=== PATIENT | female | born 1975 | race Caucasian/White ===

== ENCOUNTER 2016-08-09 12:40 | Inpatient (IN) | payer OTHER ==
[2016-08-09] MEDS ORDERED: NORMAL SALINE 10 ML SYRINGE FLUSH IVP PRN (12:51)
[2016-08-09] MEDS ORDERED: Sodium Chloride 0.9% 1,000 ML PRIMARY IV ONE (12:51)
--- NOTE | 2016-08-09 13:03 | EKG ---
[address] [place] [id number] Measurements Intervals [place] Rate: 133 P: 80 ME: 155 QRS: 16 QRSD: 81 T: 48 QT: 280 QTc: 358 Interpretive Statements SINUS TACHYCARDIA ABNORMAL RHYTHM ECG SLOW R WAVE PROGRESSION V1-V4. MAY BE LEAD PLACEMENT No previous ECG available for comparison Electronically Signed On 08-10-16 12:17:16 MST by Evan Peterson [email or web address]
[2016-08-09 13:11] LABS: BASOPHILS # (AUTO) 0.01 10*3/UL; BASOPHILS % (AUTO) 0.1 % (0-1); EOSINOPHILS % (AUTO) 0 % (0-8); HEMATOCRIT 45.8 % (37.0-47.0); HEMOGLOBIN 15.9 g/dL (12.0-16.0); IMM GRAN % (AUTO) 0.1 % (0-5); IMM GRAN# (AUTO) 0.02 10*3/UL; LYMPHOCYTES # (AUTO) 0.68 10*3/uL; LYMPHOCYTES % (AUTO) 4.9 % (10-50); MEAN CORPUSCULAR HEMOGLOBIN 31.4 PG (27-31); MEAN CORPUSCULAR HGB CONC 34.7 g/dL (33-37); MEAN PLATELET VOLUME 12.1 FL (7.4-12.2); MONOCYTES # (AUTO) 0.63 10*3/UL (0.3-0.8); MONOCYTES % (AUTO) 4.5 % (5-15); NEUTROPHILS # (AUTO) 12.51 10*3/UL; NEUTROPHILS % (AUTO) 90.4 % (50-80); RDW COEFFICIENT OF VARIATION 13.7 % (11.5-14.5); RED BLOOD COUNT 5.07 10^6/uL (4.20-5.40); WHITE BLOOD COUNT 13.85 10^3/uL (4.8-10.8)
--- NOTE | 2016-08-09 13:19 | PDOC ---
Dyspnea HPI - General Chief Complaint: Respiratory Complaint Stated Complaint: difficulty breathing Date Seen by Provider: 08/09/16 Time Seen by Provider: 12:45 Source: POSITIVE: Patient Exam Limitations: POSITIVE: No limitations Treatment Prior to Arrival: REPORTS: Oxygen, Albuterol Neb Treatment (Per EMS), Other (Ativan 1 mg IV, DuoNeb and albuterol neb treatment at home) Nurse's Notes Reviewed & Considered: Yes EMS Report Reviewed & Considered: Verbal - History of Present Illness Initial Comments: The patient is a 41-year-old female who is transported to the emergency department with worsening shortness of breath. She has a known history of asthma. She has had increased wheezing and shortness of breath for the past several days. She had presented to the emergency department last night. She underwent chest x-ray that was unremarkable. She had received several neb treatments as well as a dose of Solu-Medrol and IV magnesium with improvement. Her oxygen saturations were in the upper 80s lower 90s on room air. She was discharged home with prescriptions for Zithromax which she did take her first dose here in the emergency room last night as well as a prednisone taper. She filled her prednisone prescription this morning and took a dose of 60 mg. She also was started on Pulmicort neb treatments and has duo nebs at home. She stated that she started to develop increased wheezing, tightness with pressure in her upper back and difficulty breathing despite neb treatments. Subsequently EMS was called. When they arrived on scene the patient was hypoxic with O2 saturations in the lower 80s on room air. She was also tachycardic with heart rate of 150. She was given an albuterol neb treatment and placed on O2 per nonrebreather mask and transported here to the emergency department. She was quite anxious and was given Ativan 1 mg IV in route. On arrival she is feeling slightly better. She states that her breathing still feels quite tight and she does have some tightness across her back primarily. She does have some pain across her chest with coughing. She denies fevers or chills, swelling in her extremities or any other associated complaints. Other than asthma she denies any prior medical problems. She denies any history of heart problems or history of blood clots. - Patient Home Medications Home Medications: Home Medications Levothyroxine Sodium [Levothroid] 25 mcg PO DAILY 09/10/12 Albuterol Sulfate [Ventolin Hfa] 1 puff INH Q6H PRN PRN puff 11/25/12 Fluticasone/Salmeterol [Advair 250-50 Diskus] 1 puff INH BID puff 11/25/12 Ipratropium/Albuterol Sulfate [Duoneb 2.5-0.5 Mg/3 Ml Soln] 3 ml NEB Q4-6H PRN ml 11/25/12 Albuterol Neb Soln 0.083% 2.5 mg NEB Q2H PRN PRN #120 amp 08/08/16 Azithromycin 250 mg PO DAILY #5 tab 08/08/16 Budesonide Neb Soln [Pulmicort Neb Soln] 0.5 mg NEB BID #60 ea 08/08/16 predniSONE Tab [Deltasone Tab] 20 mg PO DAILY 08/08/16 predniSONE Tab [Deltasone Tab] See Taper PO DAILY #100 tab 08/08/16 - Patient Allergies Allergies/Adverse Reactions: Allergies Allergy/AdvReac Type Severity Reaction Status Date / Time No Known Allergies Allergy Verified 08/09/16 12:51 Past Medical History - heen HEENT History: Other (please comment) Additional HEENT History: TONSILS/ADENOIDS Cardiovascular History: Denies History Respiratory History: Asthma Gastrointestinal History: Denies History Genitourinary History: Denies History Endocrine History: Hypothyroidism Musculoskeletal History: Other (please comment) Prosthesis or Implant: No Additional Musculoskeletal History: Left Knee Repair Neurological History: Denies History Blood Disorders: Denies History Psychiatric History: Denies History History of Sexually Transmitted Diseases: No Cancer History: Denies History History of MDRO: No History of Other Communicable Diseases: No Alcohol Use: Occasionally Substance Use Type: None Previous Surgical History: Yes Type / Date of Surgery: BILATERAL KNEE REPAIR. TONSILS/ADENOIDS Anesthesia Reactions: No Significant Family History: Asthma Past Medical History Reviewed: Reviewed - No Changes ROS - Limitations ROS Limitations: No Limitations Constitution: DENIES: Chills, Fever Cardiovascular: DENIES: Chest Pain, Heart Palpitations, Blood Pressure Problem, Edema Respiratory: REPORTS: Cough Non Productive, Hurts To Breathe (Feels tight across her upper back), Shortness Of Breath, Wheezing Neurological: REPORTS: Denies Neuro Symptoms Gastrointestinal: REPORTS: Denies GI Symptoms Endocrine: REPORTS: Denies Symptoms Musculoskeletal: REPORTS: Denies MS Symptoms Genitourinary: REPORTS: Denies Symptoms Eyes: REPORTS: Denies Symptoms ENT: REPORTS: Congestion. DENIES: Sore Throat Skin: DENIES: Rash Dyspnea Physical Exam - General Appearance General Appearance: REPORTS: Alert, Cooperative, No Acute Distress, Anxious - HEENT HEENT: POSITIVE: Head Inspection Nml, Eyes Inspection Nml, Ears Inspection Nml, Pharynx Inspect. Nml - Respiratory Respiratory: REPORTS: Breath Sounds Normal, Other (The patient does show some mild increased work of breathing, she is able to answer questions however past to stop periodically to take a deep breath during conversation) - Cardiovascular Cardiovascular: REPORTS: Regular Rate and Rhythm, Heart Sounds Normal Peripheral Pulses: Dorsalis-pedis (R): 2+, Dorsalis-pedis (L): 2+ - Abdomen Abdomen: Soft: (All Quadrants), Denies Tenderness: (All Quadrants), No Distention: (All Quadrants) - Skin Skin: REPORTS: Intact. DENIES: No Rash - Extremities Extremity: Normal ROM: (All Extremities), Normal Inspection: (All Extremities) - Neurological / Psychological Neurological: POSITIVE: Oriented X3, Motor Normal, Sensation Normal Dyspnea Progress - Results Reviewed by me Xrays/CTs/US Reviewed by me: Yes Discussed with Radiologist: Yes Radiology Findings: Some air trapping noted on her portable chest x-ray with no acute findings otherwise per radiologist. Lab Results Reviewed: Yes Lab Results:: Laboratory Results 08/09/16 08/09/16 08/09/16 Range/Units 13:04 13:26 14:20 WBC 13.85 H (4.8-10.8) 10^3/uL RBC 5.07 (4.20-5.40) 10^6/uL Hgb 15.9 (12.0-16.0) g/dL Hct 45.8 (37.0-47.0) % MCV 90.3 (81-99) FL MCH 31.4 H (27-31) PG MCHC 34.7 (33-37) g/dL RDW Std Deviation 45.1 (39-50) fL RDW Coeff of Jeanine 13.7 (11.5-14.5) % Plt Count 217 (140-350) 10*3/uL MPV 12.1 (7.4-12.2) FL Immature Gran % (Auto) 0.1 (0-5) % Neut % (Auto) 90.4 H (50-80) % Lymph % (Auto) 4.9 L (10-50) % Wallace % (Auto) 4.5 L (5-15) % Eos % (Auto) 0 (0-8) % Baso % (Auto) 0.1 (0-1) % Immature Gran # (Auto) 0.02 10*3/UL Neut # (Auto) 12.51 10*3/UL Lymph # (Auto) 0.68 10*3/uL Wallace # (Auto) 0.63 (0.3-0.8) 10*3/UL Eos # (Auto) 0 10*3/UL Baso # (Auto) 0.01 10*3/UL WBC Morphology Comment Normal morphology (NORM) Plt Morphology Comment Normal morphology (NORM) RBC Morph Comment Normal morphology (NORM) D-Dimer < 0.19 (0.00-0.59) mg/L ABG pH 7.54 H (7.35-7.45) ABG pCO2 24 L (34-38) MMHG ABG pO2 73 (65-75) MMHG ABG HCO3 20 L (22-26) ABG Total CO2 21 L (23-27) MMOL/L ABG O2 Saturation 97 (90-100) % ABG Base Excess -2 (-2-2) MMOL/L Francesco Test Yes FiO2 2l Sodium 135 (135-145) meq/L Potassium 3.8 (3.8-5.2) meq/L Chloride 101 (98-112) meq/L Carbon Dioxide 23 (23-33) meq/L Anion Gap 11 (5-20) BUN 7 (7-22) mg/dL Creatinine 0.7 (0.50-1.20) mg/dL Estimated GFR > 60 (>60 ml/min/1.73m(2)) BUN/Creatinine Ratio 10.00 (6-20) Glucose 136 H (78-110) mg/dL Calculated Osmolality 279.0 (267-292) mOsm/kg Lactic Acid 1.3 (0.70-2.10) MMOL/L Calcium 8.3 L (8.7-10.7) mg/dL Magnesium 1.9 (1.6-2.4) mg/dL Total Bilirubin 0.7 (0.3-1.2) mg/dL AST 21 (8-39) IU/L ALT 31 (9-52) IU/L Alkaline Phosphatase 62 (38-126) IU/L Troponin I < 0.012 (< 0.040) ng/mL C-Reactive Protein 2.1 H (0.0-0.9) mg/dL Total Protein 7.1 (6.1-8.0) g/dL Albumin 4.1 (3.5-4.8) g/dL Globulin 3.1 (2.50-4.10) g/dL Albumin/Globulin Ratio 1.30 (1.3-2.0) mg/g Serum HCG, Qual Negative EKG Interpreted/Reviewed By Me:: Yes EKG Interpretation:: POSITIVE: Normal Intervals, Normal [place], Normal QRS, Normal ST/T, Other (Sinus tachycardia with no acute changes otherwise, rate is in the 130s) - Patient's Progress MDM / ED Course: The patient had received IV Solu-Medrol earlier this morning and had taken 60 mg of prednisone this morning as well. She had received several neb treatments at home and per EMS in route. She also received Ativan 1 mg IV in route. She also had received Zithromax earlier this morning as well. She had received IV magnesium this morning earlier as well. Here her work of breathing seem to be improving. She was placed on nasal cannula 4 L and was maintaining oxygen saturations in the low 90s. EKG was obtained showing sinus tachycardia with no acute changes otherwise. Her blood work is otherwise essentially unremarkable. Her white blood cell count is elevated likely secondary to steroids. Blood cultures were obtained. Her venous blood gas showed respiratory alkalosis. At this time the patient will be admitted for further treatment of asthma exacerbation. Dr. Jimenez has agreed to admit the patient. The patient is in agreement with this plan. - Consult Counseled: POSITIVE: Patient, Family, RE: Lab Results, RE: Radiology Results, RE : DX Patient Care Time - Estimated PCT Patient Care Time (In Minutes): 35 Vital Signs - Recent Vital Signs Vital Signs: Vital Signs (Last 8 hours) Temp Pulse Pulse Pulse Resp BP BP 08/09/16 18:55 08/09/16 16:12 08/09/16 15:30 125 H 122 H 24 08/09/16 15:15 98.2 F 120 H 20 148/91 08/09/16 14:55 98.7 F 110 H 19 138/96 08/09/16 12:40 98.8 F 136 H 23 151/93 Pulse Ox 08/09/16 18:55 97 08/09/16 16:12 94 08/09/16 15:30 08/09/16 15:15 98 08/09/16 14:55 96 08/09/16 12:40 86 - VS Reviewed Vital Signs Reviewed: Yes Discharge Clinical Impression: Asthma exacerbation, Hypoxia Discharge Disposition: Admit to Inpatient Condition: Fair Date Decision to Admit to Inpatient: 08/09/16 Time Decision to Admit to Inpatient: 15:45
[2016-08-09 13:23] LABS: PLATELET MORPHOLOGY COMMENT NORMAL MORPHOLOGY (NORM)
[2016-08-09 13:41] LABS: ABG PH 7.54 (7.35-7.45); COLLECTION SITE LEFT RADIAL
[2016-08-09 13:42] LABS: ABG BASE EXCESS -2 MMOL/L (-2-2); ABG HCO3 20 (22-26); ABG OXYGEN SATURATION 97 % (90-100); ABG TCO2 21 MMOL/L (23-27); ALLEN TEST YES; FIO2/O2 2L
[2016-08-09 14:54] LABS: ASPARTATE AMINO TRANSFERASE 21 IU/L (8-39); BILIRUBIN,TOTAL 0.7 mg/dL (0.3-1.2); BLOOD UREA NITROGEN 7 mg/dL (7-22); C-REACTIVE PROTEIN 2.1 mg/dL (0.0-0.9); CALCIUM 8.3 mg/dL (8.7-10.7); CHLORIDE 101 meq/L (98-112); CREATININE 0.7 mg/dL (0.50-1.20); EST GLOMERULAR FILTRATION > 60 (>60 ml/min/1.73m(2)); GLUCOSE 136 mg/dL (78-110); LACTATE 1.3 MMOL/L (0.70-2.10); MAGNESIUM 1.9 mg/dL (1.6-2.4); POTASSIUM 3.8 meq/L (3.8-5.2); SODIUM 135 meq/L (135-145); TOTAL PROTEIN 7.1 g/dL (6.1-8.0)
--- NOTE | 2016-08-09 15:21 | DI ---
HISTORY: Respiratory distress. History of asthma. COMPARISON: 08/08/2016. FINDINGS: The heart is within normal limits. Compared to the previous examination of 08/08/2016, th ere is some air trapping bilaterally with slight accentuation of the pulmonary vasculature in both edy ng bases. The lung danielle are otherwise essentially clear. IMPRESSION: 1. There is some air trapping bilaterally with slight accentuation of the pulmonary vasculature in vidhya th lung bases.
[2016-08-09] MEDS ORDERED: ALBUTEROL SULFATE 2.5 MG/3 ML NEB ONE (15:39)
--- NOTE | 2016-08-09 16:09 | PDOC ---
History and Physical - History of Present Illness History of Present Illness: Very nice 41-year-old female with past medical history significant for asthma has been getting worse over the last few days with her shortness of breath and hypoxia she visited the ER yesterday where she was given steroid and med Zithromax she never actually started taking the Zithromax but today comes back to the ER with the worsening of her asthma exacerbation she was the satting in the upper 80s and actually in the low 80s when EMS got to her also tachycardic with a heart rate of 150 she will be admitted to the hospital with the above diagnoses Past Medical History Medical History: Asthma, hypothyroidism Tobacco Use: Never Smoker Substance Use Type: None Medication / Allergies Home Medications: Home Medications Medication Instructions Recorded Confirmed Type Levothyroxine Sodium [Levothroid] 25 mcg PO DAILY 09/10/12 08/09/16 History Albuterol Sulfate [Ventolin Hfa] 1 puff INH Q6H PRN PRN puff 11/25/12 08/09/16 History Fluticasone/Salmeterol [Advair 1 puff INH BID puff 11/25/12 08/09/16 History 250-50 Diskus] Ipratropium/Albuterol Sulfate 3 ml NEB Q4-6H PRN ml 11/25/12 08/09/16 History [Duoneb 2.5-0.5 Mg/3 Ml Soln] Albuterol Neb Soln 0.083% 2.5 mg NEB Q2H PRN PRN #120 amp 08/08/16 08/09/16 Rx Azithromycin 250 mg PO DAILY #5 tab 08/08/16 08/09/16 Rx Budesonide Neb Soln [Pulmicort Neb 0.5 mg NEB BID #60 ea 08/08/16 08/09/16 Rx Soln] predniSONE Tab [Deltasone Tab] 20 mg PO DAILY 08/08/16 08/09/16 History predniSONE Tab [Deltasone Tab] See Taper PO DAILY #100 tab 08/08/16 08/09/16 Rx Allergies/Adverse Reactions: Allergies Allergy/AdvReac Type Severity Reaction Status Date / Time No Known Allergies Allergy Verified 08/09/16 12:51 Review of Systems - Review of Systems All Systems: Reviewed & No Additional Complaints Except as Stated - Respiratory Respiratory: REPORTS: Cough, Wheezing - Cardiovascular Cardiovascular: DENIES: Negative System Review, Chest Pain, Edema, Syncope, Palpitations, Orthopnea, Paroxysmal Nocturnal Dyspnea, Other, See HPI - Gastrointestinal Gastrointestinal / Abdominal: DENIES: Negative System Review, Nausea, Vomiting, Diarrhea, Constipation, Abdominal Pain, Bloody Stool, Poor Appetite, Heartburn, Regurgitation, Bloating, Lactose Intolerance, Melena, Bright Red Blood Per Rectum, Other, See HPI - Genitourinary Genitourinary: DENIES: Negative System Review, Pain, Burning, Hematuria, Incontinence, Urgency, Hesitant Stream, Decreased Stream, Nocutria, Discharge, Sexual Dyfunction, Other, See HPI - Neurological Neurologic: DENIES: Negative System Review, Headache, Numbness/Paresthesia, Tremors, Weakness, Seizures, Head Trauma, LOC, Dizziness, Confusion, Memory Loss , Difficulty Walking, Incoordination, Other, See HPI Exam - Vitals Vital Signs: Vital Signs Temperature 98.8 F Temperature Source Temporal Artery Scan Pulse Rate [Pulse Oximeter] 136 Respiratory Rate 23 Blood Pressure [Right Arm] 151/93 Pulse Ox 86 Oxygen Delivery Method Room Air Height 5 ft 6 in Weight 86.183 kg - General General Appearance: POSITIVE: Mild Distress - Head Head Exam: POSITIVE: Normal Inspection, Normocephalic, Atraumatic - Neck Neck Exam: POSITIVE: Normal Inspection, Full ROM - Respiratory Additional Respiratory Exam Details: Crackles in the left lower lobe and scattered wheezes still moving air - Cardiovascular Cardiovascular Exam: POSITIVE: RRR, No Murmur, No Clicks, No Gallops - GI/Abdominal GI/Abdominal Exam: POSITIVE: Normal Bowel Sounds, Non Tender, Non Distended, Soft - Extremities Extremities Exam: POSITIVE: Normal Inspection, No Clubbing Present, No Edema Present Results - Labs CBC and BMP: 08/09/16 13:04 08/09/16 14:20 Labs - Last 24 Hours: Laboratory Results 08/09/16 08/09/16 08/09/16 Range/Units 13:04 13:26 14:20 WBC 13.85 H (4.8-10.8) 10^3/uL RBC 5.07 (4.20-5.40) 10^6/uL Hgb 15.9 (12.0-16.0) g/dL Hct 45.8 (37.0-47.0) % MCV 90.3 (81-99) FL MCH 31.4 H (27-31) PG MCHC 34.7 (33-37) g/dL RDW Std Deviation 45.1 (39-50) fL RDW Coeff of Jeanine 13.7 (11.5-14.5) % Plt Count 217 (140-350) 10*3/uL MPV 12.1 (7.4-12.2) FL Immature Gran % (Auto) 0.1 (0-5) % Neut % (Auto) 90.4 H (50-80) % Lymph % (Auto) 4.9 L (10-50) % [place] % (Auto) 4.5 L (5-15) % Eos % (Auto) 0 (0-8) % Baso % (Auto) 0.1 (0-1) % Immature Gran # (Auto) 0.02 10*3/UL Neut # (Auto) 12.51 10*3/UL Lymph # (Auto) 0.68 10*3/uL [place] # (Auto) 0.63 (0.3-0.8) 10*3/UL Eos # (Auto) 0 10*3/UL Baso # (Auto) 0.01 10*3/UL WBC Morphology Comment Normal morphology (NORM) Plt Morphology Comment Normal morphology (NORM) RBC Morph Comment Normal morphology (NORM) D-Dimer < 0.19 (0.00-0.59) mg/L ABG pH 7.54 H (7.35-7.45) ABG pCO2 24 L (34-38) MMHG ABG pO2 73 (65-75) MMHG ABG HCO3 20 L (22-26) ABG Total CO2 21 L (23-27) MMOL/L ABG O2 Saturation 97 (90-100) % ABG Base Excess -2 (-2-2) MMOL/L Francesco Test Yes FiO2 2l Sodium 135 (135-145) meq/L Potassium 3.8 (3.8-5.2) meq/L Chloride 101 (98-112) meq/L Carbon Dioxide 23 (23-33) meq/L Anion Gap 11 (5-20) BUN 7 (7-22) mg/dL Creatinine 0.7 (0.50-1.20) mg/dL Estimated GFR > 60 (>60 ml/min/1.73m(2)) BUN/Creatinine Ratio 10.00 (6-20) Glucose 136 H (78-110) mg/dL Calculated Osmolality 279.0 (267-292) mOsm/kg Lactic Acid 1.3 (0.70-2.10) MMOL/L Calcium 8.3 L (8.7-10.7) mg/dL Magnesium 1.9 (1.6-2.4) mg/dL Total Bilirubin 0.7 (0.3-1.2) mg/dL AST 21 (8-39) IU/L ALT 31 (9-52) IU/L Alkaline Phosphatase 62 (38-126) IU/L Troponin I < 0.012 (< 0.040) ng/mL C-Reactive Protein 2.1 H (0.0-0.9) mg/dL Total Protein 7.1 (6.1-8.0) g/dL Albumin 4.1 (3.5-4.8) g/dL Globulin 3.1 (2.50-4.10) g/dL Albumin/Globulin Ratio 1.30 (1.3-2.0) mg/g Serum HCG, Qual Negative Assessment and Plan - Patient Problems (1) Asthma exacerbation Current Visit: No Status: Acute (2) Bronchitis Current Visit: No Status: Acute - Assessment / Plan Additional Assessment/Plan Details: #1 asthma exacerbation we will continue with that nebs every hour with steroids , we will also start IV steroids, keep a close eye on the patient also ordered CAT scan of her chest may sure there is no underlying pneumonia start Levaquin at 750 daily discuss case of respiratory therapy
[2016-08-09] MEDS ORDERED: Levofloxacin 750mg (Premix) 750 MG in Dextrose 1 BAG IV SCH (16:30)
[2016-08-09] MEDS: HEPARIN 5000 UNIT/1 ML SUBCUT SCH (17:38)
[2016-08-09] MEDS: methylPREDNISolone 125 MG/2 ML VIAL IVP SCH ×2 (17:38→21:30)
[2016-08-09] MEDS: LEVALBUTEROL HCL 1.25 MG/3 ML NEB PRN (17:56)
--- NOTE | 2016-08-09 18:22 | DI ---
HISTORY: Hypoxia. History of asthma. COMPARISON: None available. TECHNIQUE: Multiple CT images were obtained through the chest with IV contrast. FINDINGS: There is no evidence of pulmonary embolism. There is no infiltrate nor effusion. No mediastinal lymphadenopathy. The upper abdomen is unremarkable. IMPRESSION: 1. No pulmonary embolism. NOTIFICATION: The above report was sent to Carla Jenkins in the ER Department on 08/09/2016 at 08:20 P M EST.
[2016-08-09] MEDS: FLUTICASONE/SALMETEROL 250/50 UD INHALER INH SCH (18:43)
[2016-08-09] MEDS: BUDESONIDE 0.5 MG/2 ML NEB SCH (18:44)
[2016-08-09] MEDS ORDERED: BUDESONIDE 0.5 MG/2 ML NEB SCH (19:00)
[2016-08-09] MEDS ORDERED: IBUPROFEN 800 MG TABLET PO PRN (20:28)
[2016-08-09] MEDS: ALBUTEROL SULFATE 2.5 MG/3 ML NEB PRN (20:51)
[2016-08-09] MEDS: NORMAL SALINE 10 ML SYRINGE FLUSH IVP PRN (21:30)
[2016-08-10] MEDS: HEPARIN 5000 UNIT/1 ML SUBCUT SCH ×2 (01:04→07:51)
[2016-08-10] MEDS: LEVALBUTEROL HCL 1.25 MG/3 ML NEB PRN ×3 (01:14→11:55)
[2016-08-10] MEDS: methylPREDNISolone 125 MG/2 ML VIAL IVP SCH ×2 (04:37→11:33)
[2016-08-10] MEDS: NORMAL SALINE 10 ML SYRINGE FLUSH IVP PRN (04:37)
[2016-08-10 05:40] LABS: BASOPHILS # (AUTO) 0.01 10*3/UL; BASOPHILS % (AUTO) 0.1 % (0-1); EOSINOPHILS % (AUTO) 0 % (0-8); HEMATOCRIT 45.4 % (37.0-47.0); HEMOGLOBIN 15.3 g/dL (12.0-16.0); IMM GRAN % (AUTO) 0.2 % (0-5); IMM GRAN# (AUTO) 0.03 10*3/UL; LYMPHOCYTES # (AUTO) 0.94 10*3/uL; LYMPHOCYTES % (AUTO) 5.7 % (10-50); MEAN CORPUSCULAR HEMOGLOBIN 30.9 PG (27-31); MEAN CORPUSCULAR HGB CONC 33.7 g/dL (33-37); MEAN PLATELET VOLUME 11.9 FL (7.4-12.2); MONOCYTES # (AUTO) 0.66 10*3/UL (0.3-0.8); NEUTROPHILS # (AUTO) 14.85 10*3/UL; RDW COEFFICIENT OF VARIATION 13.9 % (11.5-14.5); RED BLOOD COUNT 4.95 10^6/uL (4.20-5.40); WHITE BLOOD COUNT 16.49 10^3/uL (4.8-10.8)
[2016-08-10 05:51] LABS: PLATELET MORPHOLOGY COMMENT NORMAL MORPHOLOGY (NORM)
[2016-08-10 05:56] LABS: ASPARTATE AMINO TRANSFERASE 34 IU/L (8-39); BILIRUBIN,TOTAL 0.6 mg/dL (0.3-1.2); BLOOD UREA NITROGEN 7 mg/dL (7-22); CALCIUM 8.4 mg/dL (8.7-10.7); CHLORIDE 105 meq/L (98-112); CREATININE 0.7 mg/dL (0.50-1.20); EST GLOMERULAR FILTRATION > 60 (>60 ml/min/1.73m(2)); GLUCOSE 133 mg/dL (78-110); MAGNESIUM 2.2 mg/dL (1.6-2.4); POTASSIUM 4.6 meq/L (3.8-5.2); SODIUM 141 meq/L (135-145)
[2016-08-10] MEDS ORDERED: LEVOTHYROXINE 25 MCG TABLET PO SCH (06:30)
[2016-08-10] MEDS: ALBUTEROL SULFATE 2.5 MG/3 ML NEB PRN ×2 (06:48→08:55)
[2016-08-10] MEDS: BUDESONIDE 0.5 MG/2 ML NEB SCH (06:52)
[2016-08-10] MEDS: FLUTICASONE/SALMETEROL 250/50 UD INHALER INH SCH (06:53)
[2016-08-10 07:40] VITALS: RESP 24
[2016-08-10] MEDS ORDERED: LORazepam 2 MG/1 ML VIAL IVP ONE (09:18)
[2016-08-10] MEDS ORDERED: IPRATROPIUM/ALBUTEROL SULFATE 3 ML NEB NEB ONE (12:25)
[2016-08-10] MEDS ORDERED: ETOMIDATE 2 MG/1 ML - 20 ML IVP ONE (13:11)
[2016-08-10] MEDS ORDERED: SUCCINYLCHOLINE CHLORIDE 20 MG/1 ML - 10 ML ONE (13:11)
--- NOTE | 2016-08-10 13:49 | DCSUMMARY ---
Hospitalization Summary Hospital Course: Final Discharge Diagnosis: Current Visit Problems Problem Status Priority Diagnosed Code Asthma exacerbation Acute J45.901 Hypoxia Acute R09.02 Diagnostic Data, Laboratory Data, and Procedures of Signifigance: Laboratory Results 08/09/16 08/09/16 08/09/16 Range/Units 13:04 13:26 14:20 WBC 13.85 H (4.8-10.8) 10^3/uL RBC 5.07 (4.20-5.40) 10^6/uL Hgb 15.9 (12.0-16.0) g/dL Hct 45.8 (37.0-47.0) % MCV 90.3 (81-99) FL MCH 31.4 H (27-31) PG MCHC 34.7 (33-37) g/dL RDW Std Deviation 45.1 (39-50) fL RDW Coeff of Jeanine 13.7 (11.5-14.5) % Plt Count 217 (140-350) 10*3/uL MPV 12.1 (7.4-12.2) FL Immature Gran % (Auto) 0.1 (0-5) % Neut % (Auto) 90.4 H (50-80) % Lymph % (Auto) 4.9 L (10-50) % Hooker % (Auto) 4.5 L (5-15) % Eos % (Auto) 0 (0-8) % Baso % (Auto) 0.1 (0-1) % Immature Gran # (Auto) 0.02 10*3/UL Neut # (Auto) 12.51 10*3/UL Lymph # (Auto) 0.68 10*3/uL Hooker # (Auto) 0.63 (0.3-0.8) 10*3/UL Eos # (Auto) 0 10*3/UL Baso # (Auto) 0.01 10*3/UL WBC Morphology Comment Normal morphology (NORM) Plt Morphology Comment Normal morphology (NORM) RBC Morph Comment Normal morphology (NORM) D-Dimer < 0.19 (0.00-0.59) mg/L ABG pH 7.54 H (7.35-7.45) ABG pCO2 24 L (34-38) MMHG ABG pO2 73 (65-75) MMHG ABG HCO3 20 L (22-26) ABG Total CO2 21 L (23-27) MMOL/L ABG O2 Saturation 97 (90-100) % ABG Base Excess -2 (-2-2) MMOL/L Francesco Test Yes FiO2 2l Sodium 135 (135-145) meq/L Potassium 3.8 (3.8-5.2) meq/L Chloride 101 (98-112) meq/L Carbon Dioxide 23 (23-33) meq/L Anion Gap 11 (5-20) BUN 7 (7-22) mg/dL Creatinine 0.7 (0.50-1.20) mg/dL Estimated GFR > 60 (>60 ml/min/1.73m(2)) BUN/Creatinine Ratio 10.00 (6-20) Glucose 136 H (78-110) mg/dL Calculated Osmolality 279.0 (267-292) mOsm/kg Lactic Acid 1.3 (0.70-2.10) MMOL/L Calcium 8.3 L (8.7-10.7) mg/dL Magnesium 1.9 (1.6-2.4) mg/dL Total Bilirubin 0.7 (0.3-1.2) mg/dL AST 21 (8-39) IU/L ALT 31 (9-52) IU/L Alkaline Phosphatase 62 (38-126) IU/L Troponin I < 0.012 (< 0.040) ng/mL C-Reactive Protein 2.1 H (0.0-0.9) mg/dL Total Protein 7.1 (6.1-8.0) g/dL Albumin 4.1 (3.5-4.8) g/dL Globulin 3.1 (2.50-4.10) g/dL Albumin/Globulin Ratio 1.30 (1.3-2.0) mg/g Serum HCG, Qual Negative 08/10/16 Range/Units 05:20 WBC 16.49 H (4.8-10.8) 10^3/uL RBC 4.95 (4.20-5.40) 10^6/uL Hgb 15.3 (12.0-16.0) g/dL Hct 45.4 (37.0-47.0) % MCV 91.7 (81-99) FL MCH 30.9 (27-31) PG MCHC 33.7 (33-37) g/dL RDW Std Deviation 46.4 (39-50) fL RDW Coeff of Jeanine 13.9 (11.5-14.5) % Plt Count 203 (140-350) 10*3/uL MPV 11.9 (7.4-12.2) FL Immature Gran % (Auto) 0.2 (0-5) % Neut % (Auto) 90.0 H (50-80) % Lymph % (Auto) 5.7 L (10-50) % Hooker % (Auto) 4.0 L (5-15) % Eos % (Auto) 0 (0-8) % Baso % (Auto) 0.1 (0-1) % Immature Gran # (Auto) 0.03 10*3/UL Neut # (Auto) 14.85 10*3/UL Lymph # (Auto) 0.94 10*3/uL Hooker # (Auto) 0.66 (0.3-0.8) 10*3/UL Eos # (Auto) 0 10*3/UL Baso # (Auto) 0.01 10*3/UL WBC Morphology Comment Normal morphology (NORM) Plt Morphology Comment Normal morphology (NORM) RBC Morph Comment Normal morphology (NORM) D-Dimer (0.00-0.59) mg/L ABG pH (7.35-7.45) ABG pCO2 (34-38) MMHG ABG pO2 (65-75) MMHG ABG HCO3 (22-26) ABG Total CO2 (23-27) MMOL/L ABG O2 Saturation (90-100) % ABG Base Excess (-2-2) MMOL/L Francesco Test FiO2 Sodium 141 D (135-145) meq/L Potassium 4.6 (3.8-5.2) meq/L Chloride 105 (98-112) meq/L Carbon Dioxide 26 (23-33) meq/L Anion Gap 10 (5-20) BUN 7 (7-22) mg/dL Creatinine 0.7 (0.50-1.20) mg/dL Estimated GFR > 60 (>60 ml/min/1.73m(2)) BUN/Creatinine Ratio 10.00 (6-20) Glucose 133 H (78-110) mg/dL Calculated Osmolality 291.0 (267-292) mOsm/kg Lactic Acid (0.70-2.10) MMOL/L Calcium 8.4 L (8.7-10.7) mg/dL Magnesium 2.2 (1.6-2.4) mg/dL Total Bilirubin 0.6 (0.3-1.2) mg/dL AST 34 (8-39) IU/L ALT 38 (9-52) IU/L Alkaline Phosphatase 62 (38-126) IU/L Troponin I (< 0.040) ng/mL C-Reactive Protein (0.0-0.9) mg/dL Total Protein 7.0 (6.1-8.0) g/dL Albumin 3.9 (3.5-4.8) g/dL Globulin 3.1 (2.50-4.10) g/dL Albumin/Globulin Ratio 1.20 L (1.3-2.0) mg/g Serum HCG, Qual History and Physical pertinent to Admission: HEENT History: Other (please comment) Additional HEENT History: TONSILS/ADENOIDS Cardiovascular History: Denies History Respiratory History: Asthma Gastrointestinal History: Denies History Genitourinary History: Denies History Endocrine History: Hypothyroidism Musculoskeletal History: Other (please comment) Prosthesis or Implant: No Additional Musculoskeletal History: Left Knee Repair Neurological History: Denies History Blood Disorders: Denies History Psychiatric History: Denies History History of Sexually Transmitted Diseases: No Cancer History: Denies History History of MDRO: No History of Other Communicable Diseases: No Alcohol Use: Occasionally Substance Use Type: None Previous Surgical History: Yes Type / Date of Surgery: BILATERAL KNEE REPAIR. TONSILS/ADENOIDS Anesthesia Reactions: No Significant Family History: Asthma Past Medical History Reviewed: Reviewed - No Changes ROS Course of Hospitalization: This very nice 41-year-old female past medical history significant for asthma was previously [place] for another [place] [facility]. [place]ed to the ER a few days ago with some expiratory wheezes was given treatments and by mouth steroids discharged home patient comes back to the ER yesterday with increased wheezing and was admitted the to the hospital for further care . The patient was started on neb treatments Q 1 to 2 hours with albuterol, DuoNeb' s, budesonide, Advair and IV steroids 60 IV every 6 patient was doing pretty well last night we were in the room talking with her kids and was speaking in full sentences as well as us morning she was doing pretty well with 2 L of oxygen and 91-92% but still some expiratory and inspiratory wheezing after 12 PM she started to get more fatigued with increased expiratory and inspiratory wheezing and now working pretty hard and using accessory muscles and was tiring out. Gases were 7.54 and 24 yesterday this was a VBG. Today ABG on 6 L 7.3 and PCO2 of 49. I discussed the this with the patient who agreed to be intubated and actually she wanting to be intubated because was so tired . Patient was was intubated without any complications she is now on a propofol drip and will be transferred [place] [facility] on a respirator. I would like to thank [facility] and Dr. Bonilla for their assistance On the date of discharge, the patient was examined: Gen.: Patient sedated and intubated Heart: Regular rate and rhythm, no murmurs, clicks, gallops, or rubs Lungs: As per and expiratory wheezes Abdomen/GI: Normal tones on auscultation, soft, nontender, nondistended Musculoskeletal/extremities: No clubbing, cyanosis, or edema Vitals reviewed and are listed below Assessment and Plan: 1. As per discharge assessments above 2. Disposition: [facility] 3. Condition on discharge, stable and improved. 4. Diet: regular diet 5. Activities: resume normal activities 6. Follow-Up: 1. PCP 2. 7. Medications at the Time of Discharge: Active Medications Generic Name Dose Route Start Last Admin Trade Name Freq PRN Reason Stop Dose Admin Albuterol Sulfate 2.5 mg 08/09/16 16:03 08/10/16 08:55 Albuterol Neb Soln 0.083% NEB 2.5 mg RTQ2HR PRN Administration Dyspnea Budesonide 0.5 mg 08/09/16 19:00 08/10/16 06:52 Pulmicort Neb Soln NEB 0.5 mg RTBID GEOVANNA Administration Heparin Sodium (Porcine) 5,000 unit 08/09/16 16:18 08/10/16 07:51 Heparin Inj SUBCUT 5,000 unit Q8H GEOVANNA Administration Sodium Chloride 25 mls @ 200 mls/hr 08/09/16 16:18 Normal Saline 0.9% IV .Post Infusion PRN No Primary IV for Flush ONLY Potassium Chloride/Sodium Chloride 1,000 mls @ 125 mls/hr 08/09/16 16:18 11:57 Pot Chl 20meq + Ns PRIMARY IV 125 mls/hr .Q8H GEOVANNA Administration Propofol 100 mls @ 2.624 mls/hr 08/10/16 13:15 Diprivan IV .TITRATE GEOVANNA Protocol 5 MCG/KG/MIN Ibuprofen 800 mg 08/09/16 20:28 08/09/16 21:33 Motrin PO 800 mg Q8H PRN Administration Pain Levalbuterol HCl 1.25 mg 08/09/16 16:18 08/10/16 11:55 Xopenex Neb Soln NEB 1.25 mg RTQ4H PRN Administration Shortness of Breath Levothyroxine Sodium 25 mcg 08/10/16 06:30 08/10/16 07:50 Synthroid PO 25 mcg DAILY@0630 GEOVANNA Administration Methylprednisolone Sodium Succinate 60 mg 08/09/16 16:18 08/10/16 11:33 Solu-Medrol Inj IVP 08/12/16 16:17 60 mg Q6H GEOVANNA Administration Fluticasone/Salmeterol 1 puff 08/09/16 19:00 08/10/16 06:53 Advair Diskus 250/50 Inhaler INH 1 puff RTBID GEOVANNA Administration Sodium Chloride 5 - 20 ml 08/09/16 16:18 08/10/16 04:37 Saline Flush IVP 10 ml BID PRN Administration Flush Home Medications Medication Instructions Recorded Confirmed Type Levothyroxine Sodium [Levothroid] 25 mcg PO DAILY 09/10/12 08/09/16 History Albuterol Sulfate [Ventolin Hfa] 1 puff INH Q6H PRN PRN puff 11/25/12 08/09/16 History Fluticasone/Salmeterol [Advair 1 puff INH BID puff 11/25/12 08/09/16 History 250-50 Diskus] Ipratropium/Albuterol Sulfate 3 ml NEB Q4-6H PRN ml 11/25/12 08/09/16 History [Duoneb 2.5-0.5 Mg/3 Ml Soln] Albuterol Neb Soln 0.083% 2.5 mg NEB Q2H PRN PRN #120 amp 08/08/16 08/09/16 Rx Azithromycin 250 mg PO DAILY #5 tab 08/08/16 08/09/16 Rx Budesonide Neb Soln [Pulmicort Neb 0.5 mg NEB BID #60 ea 08/08/16 08/09/16 Rx Soln] predniSONE Tab [Deltasone Tab] 20 mg PO DAILY 08/08/16 08/09/16 History predniSONE Tab [Deltasone Tab] See Taper PO DAILY #100 tab 08/08/16 08/09/16 Rx 8. Time, care, counseling and coordination of care for this discharge is greater than 30 minutes. Exam - Vitals Vital Signs: Vital Signs Temperature 97.4 F Temperature Source Temporal Artery Scan Pulse Rate [Apical] 98 Pulse Rate [Pulse Oximeter] 110 Pulse Rate 90 Respiratory Rate 24 Blood Pressure [Right Arm] 165/96 Pulse Ox 92 Oxygen Flow Rate 6 Oxygen Delivery Method Nasal Cannula Height 5 ft 6 in Weight 87.453 kg Patient Problems - Patient Problem List (1) Asthma exacerbation Current Visit: Yes Status: Acute (2) Bronchitis Current Visit: No Status: Acute
[2016-08-10] MEDS ORDERED: MIDAZOLAM 5 MG/1 ML ONE (13:56)
[2016-08-10] MEDS ORDERED: MIDAZOLAM HCL 50 MG/10 ML VIAL ONE (14:13)
[2016-08-10] MEDS ORDERED: Sodium Chloride 0.9% 100 ML IV ONE (14:14)
--- NOTE | 2016-08-10 14:19 | DI ---
HISTORY: ET and NG tube placement. COMPARISON: 08/09/2016. FINDINGS: ET tube is seen with distal tip approximately 1.5 cm from the dannielle. Enteric tube descen ds the thoracic midline below the diaphragm. Lungs are adequately expanded without pneumothorax, ple ural effusion, or focal airspace mass or consolidation. The cardiomediastinal silhouette and pulmona ry vascularity are likely normal for technique. No acute bony abnormality is seen. IMPRESSION: 1. No acute process identified. ET tube tip is approximately 1.5 cm from the dannielle. Consider reposi tioning. For persistent concern, consider PA and lateral chest radiographs. NOTIFICATION: The above findings and recommendations were phoned to Carla Jenkins in the ER Department on 08/10/2016 at 04:41 PM EST.
[2016-08-10] MEDS ORDERED: Sodium Chloride 0.9% 500 ML ONE (14:22)
[2016-08-10] MEDS ORDERED: Sodium Chloride 0.9% 1,000 ML ONE (14:42)
[2016-08-10 15:13] LABS: ABG PH 7.31 (7.35-7.45); COLLECTION SITE LEFT RADIAL
[2016-08-10 15:14] LABS: ABG BASE EXCESS -2 MMOL/L (-2-2); ABG HCO3 25 (22-26); ABG OXYGEN SATURATION 87 % (90-100); ABG TCO2 26 MMOL/L (23-27); ALLEN TEST YES
[2016-08-10 15:15] LABS: FIO2/O2 6 L/M
[2016-08-10 15:39] VITALS: TEMP 98.1
== END 2016-08-10 14:50 | disposition short-term general hospital (02) | DRG 203 ==
LOC: ER 12:40 → MED/SURG 15:47
PROVIDERS: ADMIT Internal Medicine; ATTEND Internal Medicine
PROC: 0BH17EZ Insertion of Endotracheal Airway into Trachea, Via Natural or Artificial Opening (ICD-10-PCS; principal; 2016-08-09)
DX: J45.901 Unspecified asthma with (acute) exacerbation (principal); R09.02 Hypoxemia
CPT/HCPCS: 36415; 36600; 71010; 71260; 80053; 82803; 83605; 83735; 84484; 84703; 85025; 85379; 86140; 87040; 93005; 93010; 94003; 94640; 94761; 99284; J0330; J1644; J2250; J7030; J7040; J7050; J7626